=== PATIENT | female | born 1970 | race Caucasian/White ===

== ENCOUNTER 2017-10-06 17:50 | Emergency (ER) | payer BC ==
[2017-10-06 18:02] VITALS: BMI 36.2
--- NOTE | 2017-10-06 18:25 | DR.EXTPAIN ---
HPI - Time seen Time seen: 18:20 - PCP Primary Care Physician: DR SUMMERS - Complaint/Symptoms Chief Complaint Doctor Comments: Patient admits to that she has gained fifteen pounds in one week. She admits to being off her thyroid medication for three weeks. She denies any allergic reaction. She denies cardiopulmonary disease. Chief Complaint:: PATIENT STATED SHE HAS BEEN SWELLING IN HER FACE AND LEGS Self Treatment fo Chief Complaint: TOOK A HCTZ - Source History Provided: Patient - Mode of arrival Mode of Arrival: Ambulatory - Timing Onset of Chief Complaint: 09/30/17 PMH - PMH Past Medical History: Yes Past Medical History: Migraines, Hyperthyroidism Past Surgical History: Yes Surgical History: Cholecystectomy, [employer] Surgery, Hysterectomy, Ortho Surgery, Tonsillectomy - Family History History of Family Medical Conditions: Yes Family Medical History: [place], Hypertension - Social History Does patient currently use any type of tobacco product: Yes Have you used tobacco products in the last 12 months: Yes Type of Tobacco Use: Cigarettes How many years tobacco product used: 5 Does any household member use tobacco: No Alcohol Use: None Do you use any recreational Drugs:: No Lives With: Family Lives Where: Home - infectious screening In the last 2 months have you had wt loss of >10#?: NO Have you had fever, night sweats or hemotysis?: No Have you traveled outside the country in the last 6 months?: No Isolation: Standard ROS - Review of Systems Eyes: No Symptoms Reported ENTM: No Symptoms Reported Respiratoy: No Symptoms Reported Cardiovascular: No Symptoms Reported Gastrointestinal/Abdominal: No Symptoms Reported Genitourinary: No Symptoms Reported Neurological: No Symptoms Reported Musculoskeletal: No Symptoms Reported Integumentary: No Symptoms Reported Hematologic/Lymphatic: No Symptoms Reported Endocrine: No Symptoms Reported Psychiatric: No Symptoms Reported All Other Systems: Reviewed and Negative PE - Vital Signs Vitals: Temperature 98.4 F Pulse Rate 69 Respiratory Rate 16 Blood Pressure 135/100 O2 Sat by Pulse Oximetry 98 - General General Appearance: Alert, In No Apparent Distress - Head Head Exam: Normal Inspection, Atraumatic - Eyes Eye exam: Normal Appearance, PERRL, EOMI - ENT ENT Exam: Normal Exam - Neck Neck Exam: Normal Inspection, Full ROM - Chest Chest Inspection: Normal Inspection - Respiratory Respiratory Exam: Normal Lung Sounds Bilat Respiratory Exam: Bilateral Clear to Auscultation - Cardiovascular Cardiovascular Exam: Regular Rate, Normal Rhythm - Abdominal Exam Abdominal Exam: Normal Inspection, Normal Bowel Sounds Abdominal Tenderness: negative: RUQ, RLQ, LUQ, LLQ, Epigastrium, Suprapubic, Diffuse, Mild, Moderate, Severe, Other - Extremities Extremities Exam: Full ROM, Edema. negative: Calf Tenderness - Upper Extremities Shoulder Exam: Normal Inspection Arm Exam: Normal Inspection Elbow Exam: Normal Inspection Forearm Exam: Normal Inspection Hand Exam: Normal Inspection Neuromotor Exam: Normal Exam Neurosensory Exam: Normal Exam Upper Ext. Vascular Exam: Capillary Refill - Lower Extremities Hip/Pelvis Exam: Normal Inspection Upper Leg Exam: Normal Inspection Knee Exam: Normal Inspection Lower Leg Exam: Swelling Ankle Exam: Normal Inspection Foot/Toe Exam: Normal Inspection Neurovascular/Tendon Exam: Normal Capillary Refill Gait Exam: Observed and Normal - Back Back Exam: Normal Inspection - Neurological Neurological Exam: Alert, Oriented X3 - Psychiatric Psychiatric Exam: Normal Affect - Skin Skin Exam: Warm, Dry Course - Reevaluation 1st: Unchanged (s/p results of TSH, patient admits to having problems with her thyroid medication and has not seen a specialist) ROR - Labs Reviewed Laboratory Results Reviewed?: Yes (TSH 293 IU) Result Diagrams: 10/06/17 18:24 10/06/17 18:24 Laboratory: WBC 8.6 X10^3/uL (3.6-10.0) 10/06/17 18:24 RBC 4.17 X10^6/uL (3.5-5.4) 10/06/17 18:24 Hgb 13.1 g/dL (12.0-16.0) 10/06/17 18:24 Hct 37.5 % (36.0-47.0) 10/06/17 18:24 MCV 90.0 fL (80.0-100.0) 10/06/17 18:24 MCH 31.4 pg (27.0-34.0) 10/06/17 18:24 MCHC 34.8 g/dL (33.0-35.0) 10/06/17 18:24 RDW 14.9 % (11.6-16.5) 10/06/17 18:24 Plt Count 216 X10^3/uL (150.0-450.0) 10/06/17 18:24 MPV 9.0 fL (7.4-11.0) 10/06/17 18:24 Neut % (Auto) 53.4 % (42.0-75.0) 10/06/17 18:24 Lymph % (Auto) 36.1 % (21.0-51.0) 10/06/17 18:24 [place] % (Auto) 5.9 % (0.0-13.0) 10/06/17 18:24 Eos % (Auto) 3.5 % (0.9-2.9) H 10/06/17 18:24 Baso % (Auto) 1.1 % (0.2-1.0) H 10/06/17 18:24 Neut # (Auto) 4.6 x10^3/uL (2.2-4.8) 10/06/17 18:24 Lymph # (Auto) 3.1 X10^3/uL (1.3-2.9) H 10/06/17 18:24 [place] # (Auto) 0.5 x10^3/uL (0.3-0.8) 10/06/17 18:24 Eos # (Auto) 0.3 x10^3/uL (0.0-0.2) H 10/06/17 18:24 Baso # (Auto) 0.1 X10^3/uL (0.0-0.1) 10/06/17 18:24 Absolute Nucleated RBC 0.0 /100WBC 10/06/17 18:24 Sodium 138 mmol/L (136-145) 10/06/17 18:24 Corrected Sodium TNP 10/06/17 18:24 Potassium 3.7 mmol/L (3.5-5.1) 10/06/17 18:24 Chloride 99 mmol/L (98-107) 10/06/17 18:24 Carbon Dioxide 30.9 mmol/L (21-32) 10/06/17 18:24 BUN 12 mg/dL (7-18) 10/06/17 18:24 Creatinine 1.15 mg/dL (0.55-1.02) H 10/06/17 18:24 Est GFR (MDRD) Af Amer > 60 (>60) 10/06/17 18:24 Est GFR (MDRD) Non-Af 54 (>60) L 10/06/17 18:24 Glucose 87 mg/dL (65-99) 10/06/17 18:24 Calcium 8.6 mg/dL (8.5-10.1) 10/06/17 18:24 Corrected Calcium TNP 10/06/17 18:24 Total Bilirubin 0.20 mg/dL (0.2-1.0) 10/06/17 18:24 AST 23 Units/L (15-37) 10/06/17 18:24 ALT 37 Units/L (12-78) 10/06/17 18:24 Alkaline Phosphatase 60 Units/L (46-116) 10/06/17 18:24 Total Protein 7.6 g/dL (6.4-8.2) 10/06/17 18: Albumin 4.3 g/dL (3.4-5.0) 10/06/17 18:24 Globulin 3.3 g/dL (2.5-4.5) 10/06/17 18:24 Albumin/Globulin Ratio 1.3 Ratio (1.1-2.1) 10/06/17 18: TSH 3rd Generation 293.000 uIU/mL (0.358-3.74) H 10/06/17 18:24 Specimen Type Random urine 10/06/17 18: Urine Color Straw (YELLOW) 10/06/17 18: Urine Appearance Clear (CLEAR) 10/06/17 18: Urine pH 7.0 (5.0 - 8.0) 10/06/17 18: Ur Specific [place] 1.005 (1.000-1.030) 10/06/17 18: Urine Protein Negative (NEGATIVE) 10/06/17 18: Urine Glucose (UA) Negative (NEGATIVE) 10/06/17 18: Urine Ketones Negative (NEGATIVE) 10/06/17 18: Urine Occult Blood 1+ (NEGATIVE) 10/06/17 18: Urine Nitrite Negative (NEGATIVE) 10/06/17 18: Urine Bilirubin Negative (NEGATIVE) 10/06/17 18: Urine Urobilinogen Normal (NORMAL) 10/06/17 18: Ur Leukocyte Esterase 1+ (NEGATIVE) 10/06/17 18: Urine RBC None seen /HPF (NONE SEEN) 10/06/17 18: Urine WBC 0-2 /HPF (NONE SEEN) 10/06/17 18:26 Ur Squamous Epith Cells Few /HPF (NEGATIVE) 10/06/17 18:26 Urine Bacteria 1+ /HPF (NEGATIVE) 10/06/17 18:26 Ur Culture Indicated? No/not indicated 10/06/17 18:26 - Diagnosis Discharge Problem: Hyperthyroidism - Discharge Plan Condition: Stable - Follow ups/Referrals Follow ups/Referrals: DON CUELLAR [Primary Care Provider] - 3 days - Instructions
[2017-10-06 18:37] LABS: BILIRUBIN,URINE NEGATIVE (NEGATIVE); BLOOD/HEMOGLOBIN,URINE 1+ (NEGATIVE); GLUCOSE, URINE NEGATIVE (NEGATIVE); KETONES,URINE NEGATIVE (NEGATIVE); LEUKOCYTE ESTERASE ,URINE 1+ (NEGATIVE); NITRITES,URINE NEGATIVE (NEGATIVE); PROTEIN,URINE NEGATIVE (NEGATIVE); UROBILINOGEN,URINE NORMAL (NORMAL)
[2017-10-06 18:38] LABS: BASOPHILS # (AUTO) 0.1 X10^3/uL (0.0-0.1); BASOPHILS % (AUTO) 1.1 % (0.2-1.0); EOSINOPHILS # (AUTO) 0.3 x10^3/uL (0.0-0.2); EOSINOPHILS % (AUTO) 3.5 % (0.9-2.9); HEMATOCRIT 37.5 % (36.0-47.0); HEMOGLOBIN 13.1 g/dL (12.0-16.0); LYMPHOCYTES # (AUTO) 3.1 X10^3/uL (1.3-2.9); LYMPHOCYTES % (AUTO) 36.1 % (21.0-51.0); MEAN CORPUSCULAR HEMOGLOBIN 31.4 pg (27.0-34.0); MEAN CORPUSCULAR HGB CONC 34.8 g/dL (33.0-35.0); MONOCYTES # (AUTO) 0.5 x10^3/uL (0.3-0.8); MONOCYTES % (AUTO) 5.9 % (0.0-13.0); NEUTROPHILS # (AUTO) 4.6 x10^3/uL (2.2-4.8); NEUTROPHILS % (AUTO) 53.4 % (42.0-75.0); PLATELET COUNT 216 X10^3/uL (150.0-450.0); RED BLOOD COUNT 4.17 X10^6/uL (3.5-5.4); RED CELL DISTRIBUTION WIDTH 14.9 % (11.6-16.5); WHITE BLOOD COUNT 8.6 X10^3/uL (3.6-10.0)
--- NOTE | 2017-10-06 18:41 | RAD ---
HISTORY: Swelling Study: Single-view chest Comparison: None Findings: The trachea is midline. The cardiac silhouette is mildly enlarged. The lungs are clear without foca l infiltrate or effusion. The bony thorax is unremarkable. IMPRESSION: 1. No acute cardiopulmonary disease. Reported By:
[2017-10-06 18:52] LABS: APPEARANCE,URINE CLEAR (CLEAR); COLOR,URINE STRAW (YELLOW)
[2017-10-06 18:53] LABS: ALANINE AMINOTRANSFERASE 37 Units/L (12-78); ALBUMIN 4.3 g/dL (3.4-5.0); ALKALINE PHOSPHATASE 60 Units/L (46-116); ASPARTATE AMINO TRANSFERASE 23 Units/L (15-37); BLOOD UREA NITROGEN 12 mg/dL (7-18); CALCIUM 8.6 mg/dL (8.5-10.1); CARBON DIOXIDE 30.9 mmol/L (21-32); CHLORIDE 99 mmol/L (98-107); CREATININE 1.15 mg/dL (0.55-1.02); SODIUM 138 mmol/L (136-145); TOTAL PROTEIN 7.6 g/dL (6.4-8.2); eGFR BLACK RACES > 60 (>60); eGFR NON BLACK RACES 54 (>60)
[2017-10-06 18:55] LABS: BACTERIA,URINE 1+ /HPF (NEGATIVE); RBC,URINE NONE SEEN /HPF (NONE SEEN); SQUAMOUS EPITHELIAL CELL,UR FEW /HPF (NEGATIVE)
[2017-10-06] MEDS ORDERED: TYLENOL #3 TAB (W/CODEINE) PO ONE (19:18)
[2017-10-06 20:50] VITALS: BP 128/96
== END 2017-10-06 20:50 | disposition home or self-care (01) ==
LOC: ER 18:05
DX: E05.80 Other thyrotoxicosis without thyrotoxic crisis or storm (principal); R63.5 Abnormal weight gain; R82.99 Other abnormal findings in urine; M79.89 Other specified soft tissue disorders
CPT/HCPCS: 36415; 71045; 80053; 81001; 84443; 85025; 99283